=== PATIENT | female | born 1950 | race Caucasian/White ===

== ENCOUNTER 2016-08-07 13:28 | Outpatient (CLI) | payer OTHER | END 2016-08-07 23:00 | LOC: LAB SRH 13:28 | DX: R00.2 Palpitations (principal) | CPT/HCPCS: 90074; 91643; 95059 ==

== ENCOUNTER 2016-08-15 12:54 | Outpatient (CLI) | payer OTHER | END 2016-08-15 23:00 | LOC: RT SRH 12:54 | DX: R00.2 Palpitations (principal) ==

== ENCOUNTER 2016-10-15 12:57 | Outpatient (CLI) | payer OTHER | END 2016-10-15 23:00 | LOC: LAB SRH 12:57 | DX: Q60.0 Renal agenesis, unilateral (principal); N10 Acute pyelonephritis | CPT/HCPCS: 90074; 90100; 91585; 95059; 95150 ==

== ENCOUNTER 2016-10-15 21:21 | Emergency (ER) | payer OTHER ==
--- NOTE | 2016-10-16 00:57 | ED ORDER SUMMARY ---
..... Patient: ARAMIS KNOWLES OrderSheet [facility] VisitID: [id number] [place] [address] 66y, F Registration Date/Time: 10/15/2016 ORDER SHEET Weight: 81.6 kg (stated) Allergies: Compazine, Bactrim, Sulfa Antibiotics GENERAL ORDERS: UA-Culture if indicated Urgent (22:10/15/2016 RCollier R.N. per protocol) (Ack 22:09 IJurca ER Tech1) (Sent 22:10 IJurca ER Tech1) (23:02 DDavis R.N.) CBC w Diff Urgent (:10/15/2016 Yoli SHARIF) (Ack 22:26 KURTurcdeng ER Tech1) (Cancelled: Duplicate Order22:43 Yoli SHARIF) CMP Urgent (:10/15/2016 Yoli SHARIF) (Ack 22:26 Jaleel ER Tech1) (Cancelled: Duplicate Order22:43 Yoli SHARIF) Blood Culture (No) (N/A) Urgent (22:24 10/15/2016 Yoli SHARIF) (Ack 22:26 KURTurcdeng ER Tech1) (23:02 DDavis R.N.) Lactate, Serum Urgent (:10/15/2016 Yoli SHARIF) (Ack 22:26 Jaleel ER Tech1) (23:02 DDavis R.N.) MEDICATION ORDERS: Tylenol PO 650 mg (for fever) (21:55 10/15/2016 DDavis R.N. per protocol) (21:56 DDavis R.N.) IV FLUIDS: IV NS : initial bolus 1000 mL (1000 mL/hr), then none - (NOW) (22:10/15/2016 Yoli SHARIF) (23:03 DDavis R.N.) Zofran IV 8 mg (NOW) (22:10/15/2016 Yoli SHARIF) (23:03 DDavis R.N.) Levaquin IV 750 mg/150 mL (NOW) (22:10/15/2016 Yoli SHARIF) (23:04 DDavis R.N.) Toradol IV 30 mg (NOW) (22:25 10/15/2016 Yoli SHARIF) (23:04 Sawyer Wagner) ORDER SHEET NOTES: [Electronically signed by Rachel Felton R.N. (01:05 10/16/2016)] [Electronically signed by Judith Norman MD (08:42 10/25/2016)] [Electronically locked/signed by Rachel Felton R.N. (01:05 10/16/2016)]
--- NOTE | 2016-10-16 00:57 | ED CLINICAL REPORT ---
Clinical Report - Physicians/Mid Levels [facility] [address] [place] [address] 10/15/2016 21:22 Patient: ARAMIS KNOWLES Time Seen: 22:07. Arrived- By private vehicle. Historian- patient. HISTORY OF PRESENT ILLNESS Chief Complaint: VOMITING. This started about 5 days ago and is still present. The patient has had flank pain. No recent travel. She has had nausea and vomiting. No diarrhea, black stools, bloody stools, abdominal pain or constipation. No history of possible bad food exposure, known contact with a sick individual or change in routine. Has recently been on antibiotics but not recently been camping. The illness is described as moderate. (The patient was diagnosed with urinary tract infection about 5 days ago and placed on Macrobid. Patient states that she began vomiting and was not able to hold her meds down so she saw her doctor again and was placed on Phenergan. However she has been unable to hold the Phenergan down either since the time of diagnoses she has not been able to take her medications. Patient states that now she is running fevers and has back pain.). Similar symptoms previously: None. Recent medical care: The patient was seen recently at another facility. REVIEW OF SYSTEMS The patient has had fever and back pain. No muscle aches, difficulty with urination, dark urine, headache or dizziness. No sore throat, cough, chest pain, difficulty breathing or excessive urination. No skin rash, jaundice, fainting episodes or blurred vision. All systems otherwise negative, except as recorded above. PAST HISTORY Problems: Abscess. Hypercholesterolemia. Asthma. LNMP - Last Normal Menstrual Period. Hyperlipidemia. Vertigo. Nasal Fracture. Tetanus Status. Immunizations. Additional Surgeries: Rt total hip. Tonsillectomy. Tubal Ligation. Medications: ASA 325mg, daily. Simvastatin Oral 20 mg, daily. Vitamins one tab, daily. Allergies: Bactrim. Compazine. Definite Severe(restlessness) Sulfa Antibiotics. SOCIAL HISTORY Never smoker. No alcohol use or drug use. ADDITIONAL NOTES The nursing notes have been reviewed. PHYSICAL EXAM Vital Signs: 10/15/2016 21:54 BP: 113/73. HR: 104. RR: 16. O2 saturation: 94%. Temp: 103 F. Pain level now: 08/23. Have been reviewed. Appearance: Alert. Oriented X3. No acute distress. (The patient appears moderately uncomfortable.). Eyes: Pupils equal, round and reactive to light. Eyes normal inspection. ENT: Nose normal. Neck: Normal inspection. Neck supple. CVS: Normal heart rate and rhythm. Heart sounds normal. Pulses normal. Respiratory: No respiratory distress. Breath sounds normal. Abdomen: Soft and nontender. Back: Moderate CVA tenderness on the left. Skin: Skin warm and dry. Normal skin color. No rash. Normal skin turgor. Extremities: Extremities exhibit normal ROM. No lower extremity edema. Neuro: Oriented X 3. No motor deficit. No sensory deficit. LABS, X-RAYS, AND EKG Laboratory Tests: UA-Culture if indicated: (BRET: 10/15/2016 22:10) ( [facility] [place]:37) Final results Test Result Flag Units (Reference) URINE COLOR YELLOW URINE APPEARANCE CLEAR URINE GLUCOSE NEGATIVE (NEGATIVE) URINE BILIRUBIN NEGATIVE (NEGATIVE) URINE KETONE NEGATIVE (NEGATIVE) URINE SPECIFIC GRAVITY <= 1.005 L (1.010-1.030) URINE PH 5.5 (5.0-8.0) URINE PROTEIN TRACE (NEGATIVE) URINE UROBILINOGEN 0.2 EU/dL (0.2-1.0) URINE NITRITE NEGATIVE (NEGATIVE) URINE BLOOD 1+ (NEGATIVE) URINE LEUK ESTERASE POSITIVE (NEGATIVE) URINE RBC 5-10 rbc/hpf (0-1) URINE WBC 25-50 wbc/hpf (0-1) URINE EPITHELIAL CELLS 0-1 EPI/hpf (0-5) URINE BACTERIA MODERATE (2+ TO 3+) (NONE SEEN) URINE COMMENT CULTURE INDICATED URINE CULTURES ARE SET-UP BASED ON THE FOLLOWING CRITERIA:POSITIVE NITRITEPOSITIVE LEUKOCYTE ESTERASEGREATER THAN 10 WHITE BLOOD CELLSMODERATE (2+) OR GREATER BACTERIA Lactate, Serum: (BRET: 10/15/2016 22:40) ( [facility] 10/15/2016 23:20) Final results Test Result Flag Units (Reference) LACTIC ACID 1.4 mmol/L (0.4-2.0) . Pulse Oximetry: 10/15/2016 21:54 O2 saturation: 94%. (FIO2 - room air). Interpretation: normal. PROGRESS AND PROCEDURES Course of Care: The patient was given IV fluids Levaquin and Toradol and Zofran. She was also given oral Tylenol. I suspected pyelonephritis and the patient was worked up accordingly. Her urinalysis was strongly positive lactic acid level was normal. The patient tolerated the oral Tylenol without difficulty. She was currently on oral Phenergan and I did feel that oral dissolving tablets of Zofran would be a better choice for her. I will also switch her antibiotics to Levaquin which she may take once daily for her next dose will not be until tomorrow evening. Patient is advised that if she continues to be unable to hold her medications down and she'll need to return to the emergency department for consideration of admission. Patient and spouse counseled in person regarding the patient's stable condition, test results, diagnosis and need for follow-up. Old medical records reviewed. Disposition: Discharged. Condition: stable and improved. CLINICAL IMPRESSION Vomiting with nausea. Acute pyelonephritis INSTRUCTIONS Drink plenty of fluids. Warnings: GENERAL WARNINGS: Return or contact your physician immediately if your condition worsens or changes unexpectedly, if not improving as expected, or if other problems arise. Your Current Medications: CONTINUE TAKING THE FOLLOWING MEDICATIONS: ASA* : 325mg daily. Simvastatin Oral : 20 mg daily. Vitamins* : one tab daily. Prescription Medications: Zofran (orally disintegrating tablets) 4 mg: take 1-2 orally every 6 hours as needed for nausea. Dispense twenty (20). No refill. Substitution is permissible. Levaquin 500 mg: take 1 tab orally every day for 14 days. No refills. Substitution is permissible. Follow-up: Follow up with your doctor in seven days if not better. Understanding of the discharge instructions verbalized by patient. (Electronically signed by Judith Norman MD 10/25/2016 8:42)
--- NOTE | 2016-10-16 00:57 | ED NURSING NOTES ---
Clinical Report - Nurses [facility] [address] [place] [address] 10/15/2016 21:22 Patient: ARAMIS KNOWLES TRIAGE Triage time 21:55. Acuity: LEVEL 3. Chief Complaint: ABDOMINAL PAIN, NAUSEA and VOMITING. 22:04. --22:04 Rosaura Shirley R.N. 21:54 10/15/16. BP: 113/73 taken on the right arm, via an automated monitor, while sitting. HR: 104 (regular, tachycardic and strong). RR: 16 (regular, unlabored and normal). O2 saturation: 94% on room air. Temp: 103 F (oral). Pain level now: 08/23. --22:04 Rosaura Shirley R.N. Weight: 81.6 kg stated. Height/Length: 65 inches Per Patient. BMI: 30. --22:00 Rosaura Shirley R.N. Medications ASA 325mg, daily. Simvastatin Oral 20 mg, daily. Vitamins one tab, daily. --21:56 Rosaura Shirley R.N. Allergies Compazine. Definite Severe(restlessness) --21:56 Rosaura Shirley R.N. Bactrim. --21:56 Rosaura Shirley R.N. Sulfa Antibiotics. --21:57 Rosaura Shirley R.N. History Arrived by private vehicle. Historian: patient. Accompanied by spouse. Onset. (5 days ago). ( Has gone to the doctor 2 times for this. Still unable to keep medication down. Has been given phenergan 25 mg also nitrofuranton 100 mg. Unable to keep medications down). She has had nausea and vomiting. Last oral intake by patient was (1500). PAST MEDICAL HX: Immunizations: up-to-date. Denies current . SOCIAL HX: Never smoker. No alcohol use or drug use. FALL RISK ASSESSMENT: Fall risk assessment completed. No fall risk identified. NUTRITIONAL RISK ASSESSMENT: The nutritional risk assessment revealed no deficiencies. FUNCTIONAL ASSESSMENT: Functional assessment: no impairments noted. LEARNING NEEDS ASSESSMENT: The learning needs assessment revealed no barriers. SKIN INTEGRITY ASSESSMENT: Skin integrity risk assessment completed. No skin integrity risk identified. --22:04 Rosaura Shirley R.N. PROBLEMS: Has one kidney. --:58 Rosaura Shirley R.N. ADDITIONAL SURGERIES: Rt total hip. --:58 Rosaura Shirley R.N. Interventions ID band on patient. --22:04 Rosaura Shirley R.N. PHYSICAL ASSESSMENT Ambulatory to room. ( pt states having painful urination on "Friday" and states that she went to a clinic and received treatment. She states having fever, and vomiting today stating "I can't keep anything down."). GENERAL / NEURO / PSYCH: Alert. Oriented X 4. Does not appear anxious. HEENT: Mucous membranes are pink. RESPIRATORY: No respiratory distress. Respirations not labored. CVS: Normal sinus rhythm noted. Capillary refill less than 2 seconds. GI / : The patient has had intermittent episodes of nausea (vomiting). Abdomen soft. SKIN: Skin is warm. ( clammy). --23:15 Jeff Arreola R.N. NURSING PROGRESS NOTES 21:56 10/15/2016 Tylenol (Acetaminophen) PO 650 mg given. Allergies verified and confirmed 5 rights. --21:56 Jeff Arreola R.N. 22:04. Checked patient name and birthdate: patient confirmed. Clean catch urine collected with return of yellow-colored clear urine; odor is normal; sample sent to lab for urinalysis. Specimen labeled in the presence of the patient. --22:04 Rosaura Shirley R.N. 22:00 10/15/2016 Started 750 mg of Levaquin (Levofloxacin) IVPB in bag #1 150 mL; at 100 mL/hr over 1.5 hour(s) via site #1 via IV pump. Allergies verified and confirmed 5 rights. IV patency established. IV site checked: no pain, redness, or swelling. IV flushed thoroughly pre- and post-medication administration. --23:04 Jeff Arreola R.N. 22:53 10/15/2016 Site #1 started via IV in the right antecubital space with an 20g angiocath, with aseptic technique and good blood return; one attempt. Blood drawn: cultures x1. Saline lock flushed with 10 mL saline. --23:03 Jeff Arreola R.N. 22:58 10/15/2016 Started bag #1 1000 mL IV Fluids IV NS (Saline); at 1000 mL/hr over 1 hour(s) via site #1. Allergies verified and confirmed 5 rights. IV patency established site checked: no pain, redness, or swelling flushed thoroughly pre- and post-medication administration. Completed per protocol. --23:03 Jeff Arreola R.N. 22:58 10/15/2016 Zofran (Ondansetron HCl) IVP 8 mg given over 2 minute(s) via site #1. Allergies verified and confirmed 5 rights. IV patency established. IV site checked: no pain, redness, or swelling. IV flushed thoroughly pre- and post-medication administration. IVP given by RN. --23:03 Jeff Arreola R.N. 23:04 10/15/2016 Toradol IV 30 mg (NOW) was refused by patient because of concern over the side effects. Jeff Arreola --23:04 Jeff Arreola R.N. 00:04 10/16/2016 IV Fluids IV NS Discontinued: bag #1 completed. Total amount infused: 1000 mL. IV patency established. IV site checked: no pain, redness, or swelling. IV flushed thoroughly. --01:04 Rachel Felton R.N. 00:45 10/16/2016 Levaquin IVPB Discontinued: bag #1. Total amount infused: 150 mL. IV patency established. IV site checked: no pain, redness, or swelling. IV flushed thoroughly. --00:50 Rachel Felton R.N. DISPOSITION / DISCHARGE Condition at departure: stable. No learning barriers present. Discharge instructions provided and reviewed with the patient. Reviewed medication(s) side effects, precautions, dosing and course information. Prescription(s) given to the patient. Patient verbalized understanding. Written instructions provided in Lithuanian. The patient was discharged home and accompanied by spouse. She left the Emergency Department ambulatory and via private vehicle. Spouse driving. ( pt instructed to stop taking Phenergan and Macrobid (began taking today)). --01:04 Rachel Felton R.N. 00:55 10/16/16. BP: 88/44 taken on the left arm, via an automated monitor, while lying. ED physician notified. HR: 71. RR: 15. O2 saturation: 95% on room air. Temp: 98.1 F (oral). Bishop-Smith pain scale: 2/10. --01:04 Rachel Felton R.N. 00:54 10/16/2016 Site #1 removed upon discharge. Catheter intact. Bandage applied. --01:04 Rachel Felton R.N. Locked/Released at 10/16/2016 1:05 by Rachel Felton R.N.
--- NOTE | 2016-10-16 00:57 | ED ORDER SUMMARY ---
..... Patient: ARAMIS KNOWLES OrderSheet [facility] VisitID: [id number] [place] [address] 66y, F Registration Date/Time: 10/15/2016 ORDER SHEET Weight: 81.6 kg (stated) Allergies: Compazine, Bactrim, Sulfa Antibiotics GENERAL ORDERS: UA-Culture if indicated Urgent (22:10/15/2016 RCollier R.N. per protocol) (Ack 22:09 IJurca ER Tech1) (Sent 22:10 IJurca ER Tech1) (23:02 DDavis R.N.) CBC w Diff Urgent (:10/15/2016 Yoli SHARIF) (Ack 22:26 KURTurcdeng ER Tech1) (Cancelled: Duplicate Order22:43 Yoli SHARIF) CMP Urgent (:10/15/2016 Yoli SHARIF) (Ack 22:26 Jaleel ER Tech1) (Cancelled: Duplicate Order22:43 Yoli SHARIF) Blood Culture (No) (N/A) Urgent (22:24 10/15/2016 Yoli SHARIF) (Ack 22:26 KURTurcdeng ER Tech1) (23:02 DDavis R.N.) Lactate, Serum Urgent (:10/15/2016 Yoli SHARIF) (Ack 22:26 Jaleel ER Tech1) (23:02 DDavis R.N.) MEDICATION ORDERS: Tylenol PO 650 mg (for fever) (21:55 10/15/2016 DDavis R.N. per protocol) (21:56 DDavis R.N.) IV FLUIDS: IV NS : initial bolus 1000 mL (1000 mL/hr), then none - (NOW) (22:10/15/2016 Yoli SHARIF) (23:03 DDavis R.N.) Zofran IV 8 mg (NOW) (22:10/15/2016 Yoli SHARIF) (23:03 DDavis R.N.) Levaquin IV 750 mg/150 mL (NOW) (22:10/15/2016 Yoli SHARIF) (23:04 DDavis R.N.) Toradol IV 30 mg (NOW) (22:25 10/15/2016 Yoli SHARIF) (23:04 Sawyer Wagner) ORDER SHEET NOTES: [Electronically signed by Rachel Felton R.N. (01:05 10/16/2016)] [Electronically signed by Judith Norman MD (08:42 10/25/2016)] [Electronically locked/signed by Rachel Felton R.N. (01:05 10/16/2016)]
--- NOTE | 2016-10-25 08:43 | ED MED RECONCILIATION SUMMARY ---
Patient: ARAMIS KNOWLES Medication Reconciliation Report [facility] VisitID: [id number] [place] [address] 66y, F Registration Date/Time: 10/15/2016 Weight: 81.6 kg Height/Length: 65 in. BMI: 30.0 ALLERGIES: Bactrim, Compazine, Sulfa Antibiotics The patient's Home Medications are listed below: CONTINUE TAKING THE FOLLOWING MEDICATIONS: ASA 325mg, daily Simvastatin Oral 20 mg, daily Vitamins one tab, daily The source(s) of the original Home Medication information: Not obtained. The following Medications were given to the patient in the Emergency Department: Tylenol [PO] PO 650 mg, administered: 10/15/2016 9:56:00 PM IV NS IV Fluids bolus 0, then 1000 mL/hr, administered: 10/15/2016 10:58:00 PM Zofran [IVP] IVP 8 mg, administered: 10/15/2016 10:58:00 PM Levaquin [IVPB] IVPB bolus 0, then 750 mg 100 mL/hr, administered: 10/15/2016 10:00:00 PM The following Medications were prescribed to the patient: Zofran (orally disintegrating tablets) 4 mg: take 1-2 orally every 6 hours as needed for nausea. Dispense twenty (20). No refill. Substitution is permissible. -- Judith Norman MD Levaquin 500 mg: take 1 tab orally every day for 14 days. No refills. Substitution is permissible. -- Judith Norman MD
--- NOTE | 2016-10-25 08:43 | ED DISCHARGE INSTRUCTIONS ---
Patient: ARAMIS KNOWLES General Instructions [facility] VisitID: [id number] [place] [address] 66y, F Registration Date/Time: 10/15/2016 Vomiting with nausea. Acute pyelonephritis INSTRUCTIONS Drink plenty of fluids. Warnings: GENERAL WARNINGS: Return or contact your physician immediately if your condition worsens or changes unexpectedly, if not improving as expected, or if other problems arise. Your Current Medications: CONTINUE TAKING THE FOLLOWING MEDICATIONS: ASA* : 325mg daily. Simvastatin Oral : 20 mg daily. Vitamins* : one tab daily. Prescription Medications: Zofran (orally disintegrating tablets) 4 mg: take 1-2 orally every 6 hours as needed for nausea. Dispense twenty (20). No refill. Substitution is permissible. Levaquin 500 mg: take 1 tab orally every day for 14 days. No refills. Substitution is permissible. Follow-up: Follow up with your doctor in seven days if not better. Understanding of the discharge instructions verbalized by patient. ADDITIONAL INFORMATION Kidney Infection [Adult, Female] An infection of the kidney is also called "pyelonephritis". It usually starts as a bladder infection ("cystitis") which spreads to the kidneys. Pyelonephritis is more serious than a bladder infection. It can cause severe illness if not treated properly. The usual symptoms include an aching pain in the back, side or lower abdomen. Other symptoms may include fever, chills, nausea, vomiting, an urge to urinate and a burning sensation when passing urine. Home Care: Stay home from work or school. Rest in bed until your fever breaks and you are feeling better. Drink lots of fluid (at least 6-8 glasses a day, unless you must restrict fluids for other medical reasons). This will force the medicine into your urinary system and flush the bacteria out of your body. Avoid sexual intercourse until you have finished all of your medicine and your symptoms have gone away. Avoid caffeine, alcohol and spicy foods which may irritate the kidney and bladder. You may use acetaminophen (Tylenol) or ibuprofen (Motrin, Advil) to control pain, unless another pain medicine was prescribed. [NOTE: If you have chronic liver or kidney disease or ever had a stomach ulcer or GI bleeding, talk with your doctor before using these medicines.] Follow Up with your doctor or as advised by our staff for a repeat urine test in 10 days. This will ensure that your infection is fully cleared. [NOTE: If you had an X-ray or CT scan, it will be reviewed by a specialist. You will be notified of any new findings that may affect your care.] Get Prompt Medical Attention if any of the following occur: Fever over 100.4F (38.0C) after 48 hours of treatment No improvement by the third day of treatment Increasing back or abdominal pain Repeated vomiting or inability to take oral medicine Weakness, dizziness or fainting You have been given the following additional information: Pyelonephritis, Female (Adult) (Electronically signed by Judith Norman MD 10/25/2016 8:42)
--- NOTE | 2016-10-25 08:43 | ED MAR SUMMARY ---
..... Medication Administration Record [facility] [address] [place] [address] Patient: ARAMIS KNOWLES Visit ID: [id number] 66y, F Weight: 81.6 kg Height/Length: 65 in BMI: 30 ALLERGIES: Sulfa Antibiotics, Bactrim, Compazine Given 21:56 10/15/2016 Jeff Arreola R.N. Medication Administered: TYLENOL [PO] (ACETAMINOPHEN), Dose: 650 mg PO. Medication Ordered: Tylenol PO 650 mg (for fever). Start 22:00 10/15/2016 Jeff Arreola R.N., Stop 00:45 10/16/2016 Rachel Felton R.N. Medication Administered: LEVAQUIN [IVPB] (LEVOFLOXACIN), Dose: 750 mg IVPB over 1.5 hour(s), Rate: 100 mL/hr, Dispensed: 150 mL bag, Site: #1. Medication Ordered: Levaquin IV 750 mg/150 mL (NOW). Start 22:58 10/15/2016 Jeff Arreola R.N., Stop 00:04 10/16/2016 Rachel Felton R.N. Medication Administered: IV NS (SALINE), Dose: IV Fluids over 1 hour(s), Rate: 1000 mL/hr, Dispensed: 1000 mL bag, Site: #1 right AC. Medication Ordered: IV NS : initial bolus 1000 mL (1000 mL/hr), then none - (NOW). Given 22:58 10/15/2016 Jeff Arreola R.N. Medication Administered: ZOFRAN [IVP] (ONDANSETRON HCL), Dose: 8 mg IVP over 2 minute(s), Site: #1 right AC. Medication Ordered: Zofran IV 8 mg (NOW).
--- NOTE | 2016-10-25 08:43 | ED MED RECONCILIATION SUMMARY ---
Patient: ARAMIS KNOWLES Medication Reconciliation Report [facility] VisitID: [id number] [place] [address] 66y, F Registration Date/Time: 10/15/2016 Weight: 81.6 kg Height/Length: 65 in. BMI: 30.0 ALLERGIES: Bactrim, Compazine, Sulfa Antibiotics The patient's Home Medications are listed below: CONTINUE TAKING THE FOLLOWING MEDICATIONS: ASA 325mg, daily Simvastatin Oral 20 mg, daily Vitamins one tab, daily The source(s) of the original Home Medication information: Not obtained. The following Medications were given to the patient in the Emergency Department: Tylenol [PO] PO 650 mg, administered: 10/15/2016 9:56:00 PM IV NS IV Fluids bolus 0, then 1000 mL/hr, administered: 10/15/2016 10:58:00 PM Zofran [IVP] IVP 8 mg, administered: 10/15/2016 10:58:00 PM Levaquin [IVPB] IVPB bolus 0, then 750 mg 100 mL/hr, administered: 10/15/2016 10:00:00 PM The following Medications were prescribed to the patient: Zofran (orally disintegrating tablets) 4 mg: take 1-2 orally every 6 hours as needed for nausea. Dispense twenty (20). No refill. Substitution is permissible. -- Judith Norman MD Levaquin 500 mg: take 1 tab orally every day for 14 days. No refills. Substitution is permissible. -- Judith Norman MD
--- NOTE | 2016-10-25 08:43 | ED MAR SUMMARY ---
..... Medication Administration Record [facility] [address] [place] [address] Patient: ARAMIS KNOWLES Visit ID: [id number] 66y, F Weight: 81.6 kg Height/Length: 65 in BMI: 30 ALLERGIES: Sulfa Antibiotics, Bactrim, Compazine Given 21:56 10/15/2016 Jeff Arreola R.N. Medication Administered: TYLENOL [PO] (ACETAMINOPHEN), Dose: 650 mg PO. Medication Ordered: Tylenol PO 650 mg (for fever). Start 22:00 10/15/2016 Jeff Arreola R.N., Stop 00:45 10/16/2016 Rachel Felton R.N. Medication Administered: LEVAQUIN [IVPB] (LEVOFLOXACIN), Dose: 750 mg IVPB over 1.5 hour(s), Rate: 100 mL/hr, Dispensed: 150 mL bag, Site: #1. Medication Ordered: Levaquin IV 750 mg/150 mL (NOW). Start 22:58 10/15/2016 eJff Arreola R.N., Stop 00:04 10/16/2016 Rachel Felton R.N. Medication Administered: IV NS (SALINE), Dose: IV Fluids over 1 hour(s), Rate: 1000 mL/hr, Dispensed: 1000 mL bag, Site: #1 right AC. Medication Ordered: IV NS : initial bolus 1000 mL (1000 mL/hr), then none - (NOW). Given 22:58 10/15/2016 Jeff Arreola R.N. Medication Administered: ZOFRAN [IVP] (ONDANSETRON HCL), Dose: 8 mg IVP over 2 minute(s), Site: #1 right AC. Medication Ordered: Zofran IV 8 mg (NOW).
== END 2016-10-16 00:55 | disposition home or self-care (01) ==
LOC: ED SRH 21:21
DX: N10 Acute pyelonephritis (principal); R11.2 Nausea with vomiting, unspecified; E78.5 Hyperlipidemia, unspecified; Z79.82 Long term (current) use of aspirin; Z79.899 Other long term (current) drug therapy; Z88.2 Allergy status to sulfonamides; Z88.1 Allergy status to other antibiotic agents; Z88.8 Allergy status to other drugs, medicaments and biological substances
CPT/HCPCS: 90004; 90065; 90074; 90100; 90148; 90469; 91585; 92031; 95059; 95150

== ENCOUNTER 2016-11-05 10:54 | Outpatient (CLI) | payer OTHER ==
--- NOTE | 2016-11-05 11:36 | DIAGNOSTIC IMAGING REPORT ---
PROCEDURE: CT ABDOMEN/PELVIS W/O CONTRAST INDICATION: LLQ PAIN TECHNIQUE: Noncontrast axial images were obtained of the entire abdomen and pelvis with sagittal and coronal reformations. COMPARISON: None. FINDINGS: ABDOMEN: Lingular scar. Heart size is normal. Liver, gallbladder, pancreas, spleen and adrenal glands are normal. Congenital absence of the right kidney. 5 mm nonobstructing left renal calculus. Moderate stool. PELVIS: Normal appendix. No evidence of diverticulosis or diverticulitis. Hysterectomy versus uterine atrophy. Adnexa and bladder are unremarkable. Mild degenerative changes of the spine. Right hip arthroplasty. IMPRESSION: 1. 5 mm nonobstructing left renal calculus 2. Congenital absence of the right kidney 3. No evidence of a left lower quadrant inflammatory process. 4. Right hip arthroplasty. All CT scans at this facility use dose modulation, iterative reconstruction, and/or weight-based dosing when appropriate to reduce radiation dose to as low as reasonably achievable.
== END 2016-11-05 23:00 ==
LOC: CT SRH 10:54
DX: N20.0 Calculus of kidney (principal); Z90.5 Acquired absence of kidney; Z96.641 Presence of right artificial hip joint

== ENCOUNTER 2016-12-24 09:50 | Outpatient (CLI) | payer OTHER ==
--- NOTE | 2016-12-24 10:23 | DIAGNOSTIC IMAGING REPORT ---
PROCEDURE: DEXA BONE DENSITY STUDY CLINICAL INDICATION: BACK PAIN COMPARISON: None. FINDINGS: LUMBAR SPINE: Bone mineral density 0.923 g/cm2, T score -1.1 osteopenia LEFT HIP: Bone mineral density 0.75 ml g/cm2, T score -1.6 osteopenia LEFT FEMORAL NECK: Bone mineral density 0.63 ml g/cm2, T score -2.0 osteopenia FRACTURE RISK CALCULATION ( when applicable): 10-year fracture risk of a major osteoporotic fracture 18% and of a hip fracture 2.1% (T score greater or equal to -1.0 to: NORMAL) (T score from -1.1 to -2.4: OSTEOPENIA) (T score ess than or equal to -2.5: OSTEOPOROSIS) IMPRESSION: 1. Osteopenia spine hip and femoral neck
== END 2016-12-24 23:00 ==
LOC: XR SRH 09:50
DX: M85.89 Other specified disorders of bone density and structure, multiple sites (principal)